=== PATIENT | female | born 1960 | race Caucasian/White ===

== ENCOUNTER 2020-06-20 05:26 | Day surgery (SDC) | payer OTHER ==
[~2020-06-20 05:26] MED LIST: BACLOFEN20 MG PO; CARAFATE1 GM PO; CLOPIDOGREL75 MG PO; COLESTIPOL HCL1 GM PO; FENOFIBRATE54 MG PO; GVOKE HYPO1 MG/0.21 SC; HYOSCYAMINE0.375 MG PO; INSULIN GLARGINE SC; ISOSORBIDE DINI30 MG PO; KETOROLAC60 MG/2 ML IM; LISINOPRIL20 MG PO; NORCO 5-325 TA1 EACH PO; NORVASC10 MG PO; NOVOLOG DO100 UNIT/M SC; NOVOLOG FL100 UNIT/1 SC; PROMETHAZINE 2525 MG PO; PROZAC10 MG PO; SYNTHROID125 MCG PO; TRAZODONE 100M100 MG PO; TRESIBA FL200 UNIT/1 SC; VITAMIN B-121000 MC4 PO; VITAMIN D21250 MCG PO; ZOFRAN4 M1 SL
[2020-06-20] MEDS ORDERED: LEVEMIR FL100 UNIT/1 SC (05:45)
[2020-06-20] MEDS ORDERED: PERCOCET 5-3251 EACH PO (07:03)
--- NOTE | 2020-06-20 16:32 | NUR ---
PT. TO D/C HOME WITH SPOUSE. PT. REQUESTED [facility] HOME FOR THERAPY. [facility] TO DELIVER A ROLLING WALKER UPON DISCHARGE.
[2020-06-21 06:11] LABS: BASOPHIL 0.1 % (0-2); EOSINOPHIL 0 % (0-5); HCT 35.8 % (37.0-47.0); HGB 11.6 g/dl (12.5-16.0); LYMPHOCYTE 8.9 % (15-48); MCH 29.2 pg (25.0-31.0); MCHC 32.4 g/dL (32.0-36.0); MCV 90.2 fL (78.0-100.0); MONOCYTE 11.2 % (0-12); MPV 10.9 fL (6.0-9.5); NEUTROPHIL 79.2 % (41-80); NRBC 0; PLT 358 K/uL (150-400); RBC 3.97 M/uL (4.20-5.40); RDW 14.6 % (11.5-14.0)
[2020-06-21 06:30] LABS: BUN/CREAT RATIO (CALC) 26.2 RATIO; CREATININE 0.65 mg/dL (0.51-0.95); POTASSIUM 4.1 mmol/L (3.5-5.1)
[2020-06-21 06:36] LABS: WBC 22.1 K/uL (4.0-10.5)
[2020-06-21] MEDS ORDERED: XARELTO10 MG PO (08:20)
[2020-06-21] MEDS ORDERED: FEOSOL325 MG PO (08:44)
[2020-06-21] MEDS ORDERED: ULTRA-LIGHT RO1 EACH XX (08:50)
--- NOTE | 2020-06-21 10:26 | NUR ---
PT. TO D/C HOME WITH SPOUSE. PT. REQUESTED [facility] TO HOME. INFORMATION FAXED TO [facility] AT [phone]. ([facility]S # IS [phone]. CALLED [facility]. [facility] PAY IS $40.00
[2020-06-21] MEDS ORDERED: ZOFRAN4 M1 PO (11:00)
--- NOTE | 2020-06-21 12:49 | NUR ---
DISCHARGE INSTRUCTIONS GIVEN BY THIS RN, REVIEWED WITH PATIENT. PT VERBALIZED UNDERSTANDING
[2020-08-29] MEDS ORDERED: PERCOCET 5-3251 EACH PO (06:54)
== END 2020-06-21 13:14 | disposition home or self-care (01) ==
LOC: FAS 05:26 → FMS 05:26 → FAS 07:00 → FMS 08:32 → FAS 06-21 13:14
PROVIDERS: Orthopaedic Surgery
DX: M17.11 Unilateral primary osteoarthritis, right knee (principal); I10 Essential (primary) hypertension; E11.9 Type 2 diabetes mellitus without complications; K21.9 Gastro-esophageal reflux disease without esophagitis; G47.33 Obstructive sleep apnea (adult) (pediatric); E78.5 Hyperlipidemia, unspecified; J45.909 Unspecified asthma, uncomplicated; E03.9 Hypothyroidism, unspecified; K58.9 Irritable bowel syndrome, unspecified; K76.0 Fatty (change of) liver, not elsewhere classified; Z79.02 Long term (current) use of antithrombotics/antiplatelets; Z79.4 Long term (current) use of insulin; Z79.890 Hormone replacement therapy; Z79.899 Other long term (current) drug therapy; Z86.010 Personal history of colon polyps; Z86.73 Personal history of transient ischemic attack (TIA), and cerebral infarction without residual deficits; Z88.0 Allergy status to penicillin; Z88.2 Allergy status to sulfonamides; Z88.6 Allergy status to analgesic agent; Z88.8 Allergy status to other drugs, medicaments and biological substances; Z91.010 Allergy to peanuts; Z91.040 Latex allergy status; Z95.5 Presence of coronary angioplasty implant and graft
CPT/HCPCS: 36415; 73560; 80048; 85025; 86850; 86900; 86901; 94010; 94760; 94762; 97110; 97116; 97162; 97166; 97530-GP; 97535; C1713; C1776; J0171; J0735; J1100; J1885; J2250; J2270; J2405; J2704; J2795; J3010; J3370; J3475; J7040; J7120

== ENCOUNTER 2020-06-22 12:04 | Day surgery (SDCO) | payer OTHER ==
[~2020-06-22] VITALS: Ht 152.4 cm; Wt 88.0 kg
[~2020-06-22 12:04] MED LIST changes: +FEOSOL325 MG PO; +LEVEMIR FL100 UNIT/1 SC; +PERCOCET 5-3251 EACH PO; +ULTRA-LIGHT RO1 EACH XX; +XARELTO10 MG PO; +ZOFRAN4 M1 PO
[2020-06-22 12:51] LABS: BASOPHIL 0.4 % (0-2); EOSINOPHIL 1.2 % (0-5); HCT 35.5 % (37.0-47.0); HGB 11.3 g/dl (12.5-16.0); LYMPHOCYTE 17.3 % (15-48); MCH 29.4 pg (25.0-31.0); MCHC 31.8 g/dL (32.0-36.0); MCV 92.4 fL (78.0-100.0); MONOCYTE 14.1 % (0-12); MPV 10.9 fL (6.0-9.5); NEUTROPHIL 65.9 % (41-80); NRBC 0; PLT 322 K/uL (150-400); RBC 3.84 M/uL (4.20-5.40); WBC 12.4 K/uL (4.0-10.5)
[2020-06-22 13:05] LABS: INR 1.07 (0.9-1.2); PROTHROMBIN TIME 13.2 SECONDS (11.4-13.6); PTT 29.2 SECONDS (22.2-34.7)
[2020-06-22 13:15] LABS: ALBUMIN 3.5 g/dL (3.4-5.0); BILIRUBIN - TOTAL 0.3 mg/dL (0.2-1.0); BUN/CREAT RATIO (CALC) 24.3 RATIO; CREATININE 0.74 mg/dL (0.51-0.95); GLOBULIN (CALCULATION) 3.4 g/dL; POTASSIUM 3.8 mmol/L (3.5-5.1); TOTAL PROTEIN 6.9 g/dL (6.4-8.2)
[2020-06-22 14:05] LABS: CORONAVIRUS 2019 SARS-COV-2 NEGATIVE (NEGATIVE); INFLUENZA A NAA NEGATIVE (NEGATIVE)
[2020-06-22 15:38] LABS: LACTIC ACID 0.6 mmol/L (0.4-1.9)
--- NOTE | 2020-06-23 15:24 | NUR ---
06/23 Discharge is anticipated for 06/24. 02 has been ordered from [facility]
[2020-06-24] MEDS ORDERED: AZITHROMYCIN250 MG PO (11:08)
[2020-06-24] MEDS ORDERED: PREDNISONE 20MG20 MG PO (11:08)
[2020-06-24] MEDS ORDERED: SINGULAIR10 MG PO (11:08)
[2020-06-24] MEDS ORDERED: VENTOLIN HFA IN18 GM INH (11:08)
[2020-06-24] MEDS ORDERED: DULERA 200 MCG8.8 GM INH (11:08)
[2020-06-24] MEDS ORDERED: BACLOFEN20 MG PO (12:39)
[2020-08-29] MEDS ORDERED: PERCOCET 5-3251 EACH PO (06:54)
== END 2020-06-24 12:52 | disposition home or self-care (01) ==
LOC: FER 12:04 → FMS 15:54
PROVIDERS: Emergency Medicine; ADMIT Internal Medicine
DX: J45.901 Unspecified asthma with (acute) exacerbation (principal); E78.5 Hyperlipidemia, unspecified; I10 Essential (primary) hypertension; G47.30 Sleep apnea, unspecified; K21.9 Gastro-esophageal reflux disease without esophagitis; E03.9 Hypothyroidism, unspecified; E11.9 Type 2 diabetes mellitus without complications; M19.90 Unspecified osteoarthritis, unspecified site; Z90.49 Acquired absence of other specified parts of digestive tract; Z98.51 Tubal ligation status; Z98.890 Other specified postprocedural states; Z88.0 Allergy status to penicillin; Z88.2 Allergy status to sulfonamides; Z88.8 Allergy status to other drugs, medicaments and biological substances; Z91.040 Latex allergy status; Z88.5 Allergy status to narcotic agent; Z91.010 Allergy to peanuts; Z79.4 Long term (current) use of insulin; Z79.899 Other long term (current) drug therapy; Z20.822 Contact with and (suspected) exposure to COVID-19
CPT/HCPCS: 36415; 71045; 71275; 80053; 82962; 83605; 84484; 85025; 85610; 85730; 93005; 94640; 97162; 97165; 97530-GP; 97535; G0378; J0696; J2405; J2920; J3010; J3370; J7050; Q9967; U0002

== ENCOUNTER → 2020-08-29 | Day surgery (SDC) | payer OTHER ==
[~2020-08-29] VITALS: Ht 152.4 cm; Wt 83.5 kg
[~2020-08-29] MED LIST changes: +AZITHROMYCIN250 MG PO; +DULERA 200 MCG8.8 GM INH; +PREDNISONE 20MG20 MG PO; +SINGULAIR10 MG PO; +VENTOLIN HFA IN18 GM INH
== END | disposition home or self-care (01) ==
LOC: FAS 11:40
DX: M76.9 Unspecified enthesopathy, lower limb, excluding foot (principal); Z96.651 Presence of right artificial knee joint; Z20.822 Contact with and (suspected) exposure to COVID-19
CPT/HCPCS: 82962; 97161; 97530-GP; J0171; J1885; J2001; J2250; J2704; J2795